=== PATIENT | female | born 1980 | race Caucasian/White ===

== ENCOUNTER 2019-04-08 13:46 | Emergency (ER) | payer OTHER, SELFPAY ==
[2019-04-08 13:48] VITALS: BP 210/132; PULSE 98; RESP 16; TEMP 37; O2SAT 97
--- NOTE | 2019-04-08 15:09 | ED.URI ---
HPI - URI/Sore Throat <SYDNI Chavarria-BC - Last Filed: 04/08/19 15:14> General Chief Complaint: Upper Respiratory Symptoms Stated Complaint: Throat pain Time Seen by Provider: 04/08/19 14:50 Source: patient Mode of arrival: ambulatory Limitations: no limitations History of Present Illness HPI Narrative: The patient is a 38-year-old female with the penicillin allergy is an active smoker presents with a chief complaint of sore throat since yesterday morning. She states that there is treated from her tonsils. She denies any fevers nausea vomiting or diarrhea. She denies any chest pain or shortness of breath. She states she has a normal cough for her since she is a smoker. Sees tried some fcdl-ehf-earhlmo measures for pain including Tylenol yesterday as well as throat traps. Of note the patient is very hypertensive upon checking into the ER, but states this is normal for her at health care institutions. She denies any chest pain or headache. She denies any ear pain as well. Related Data Home Medications Medication Instructions Recorded Confirmed [ADVIL MIGRAINE] PRN #0 11/04/16 Previous Rx's Medication Instructions Recorded azithromycin 500 mg PO QDAY 5 Days #0 mg 11/04/16 prednisone 50 mg PO AMCC 3 Days #0 tab 11/04/16 azithromycin See Rx Instructions .ROUTE 04/08/19 .COMPLEX #6 tab prednisone 50 mg PO DAILY #5 tab 04/08/19 Allergies Allergy/AdvReac Type Severity Reaction Status Date / Time amoxicillin [AMOXICILLIN] Allergy Unknown RASH Unverified 01/04/18 11:54 Penicillins [PENICILLINS] Allergy Unknown RASH Unverified 01/04/18 11:54 Review of Systems <MALINDA Chavarria - Last Filed: 04/08/19 15:14> Review of Systems GENERAL: Denies chills, fatigue, malaise, fever, sweats. HEENT: See HPI RESPIRATORY: Denies dyspnea, cough, wheezing, hemoptysis, sputum. CARDIOVASCULAR: Denies chest pain, palpitations, orthopnea, edema, GASTROINTESTINAL: Denies nausea, vomiting, abdominal pain, diarrhea, constipation, melena. : Denies dysuria, frequency, incontinence, hematuria, urinary retention. MUSCULOSKELETAL: denies weakness, joint pain, or bony pain SKIN: Denies rash, skin lesions, or other NEUROLOGIC: Denies weakness, headache, numbness, change in speech, confusion, seizures, incoordination. PSYCHIATRIC: No concerning psychosocial issues. 12 point review of systems is negative except for those stated above PFSH <MALINDA Chavarria - Last Filed: 04/08/19 15:14> Medical History (Updated 04/08/19 @ 15:11 by MALINDA Chavarria) Family history non-contributory (Acute) Social History Smoking Status: Current every day smoker Social History Smoking Status: Current every day smoker Exam <MALINDA Chavarria - Last Filed: 04/08/19 15:14> Narrative Exam Narrative: GENERAL: Obese female no acute distress HEAD: Atraumatic. Normocephalic. No temporal or scalp tenderness. EYES: Pupils equal round and reactive. Extraocular motions intact. No scleral icterus. No injection or drainage. ENT: Nose without bleeding, purulent drainage or septal hematoma. Throat with erythema, tonsillar hypertrophy with tonsils touching, exudate noted bilateral tonsils. Bilateral TMs pearly gonsales. NECK: Trachea midline. Anterior lymphadenopathy noted bilaterally. Supple, nontender, no meningeal signs. CARDIOVASCULAR: Regular rate and rhythm RESPIRATORY: Clear to auscultation. Breath sounds equal bilaterally. No wheezes, rales, or rhonchi. No accessory muscle use. No retractions. Speaking full sentences. No stridor. No increased respiratory effort. GASTROINTESTINAL: Abdomen soft, non-tender, nondistended. No hepato-splenomegaly, or palpable masses. No guarding. EXTREMITIES: No clubbing, cyanosis, or edema. No joint tenderness, effusion, or edema noted. BACK: Nontender without deformity or crepitance. No flank tenderness. NEURO: AOx3. SKIN: No rash or erythema. Initial Vital Signs Initial Vital Signs: Vital Signs Temperature 98.6 F 04/08/19 13:48 Pulse Rate 98 H 04/08/19 13:48 Respiratory Rate 16 04/08/19 13:48 Blood Pressure 210/132 H 04/08/19 13:48 Pulse Oximetry 97 04/08/19 13:48 <Rosa Carrion MD - Last Filed: 04/08/19 18:46> Initial Vital Signs Initial Vital Signs: Vital Signs Temperature 98.6 F 04/08/19 13:48 Pulse Rate 98 H 04/08/19 13:48 Respiratory Rate 16 04/08/19 13:48 Blood Pressure 210/132 H 04/08/19 13:48 Pulse Oximetry 97 04/08/19 13:48 Course <MALINDA Chavarria - Last Filed: 04/08/19 15:14> Course Narrative: Patient seen in conjunction with [facility] Vital Signs - 8 hr 04/08/19 13:48 Temperature 98.6 F Pulse Rate 98 H Respiratory Rate 16 Blood Pressure 210/132 H Pulse Oximetry 97 <Rosa Carrion MD - Last Filed: 04/08/19 18:46> Vital Signs - 8 hr 04/08/19 13:48 Temperature 98.6 F Pulse Rate 98 H Respiratory Rate 16 Blood Pressure 210/132 H Pulse Oximetry 97 MDM - URI/Sore Throat <MALINDA Chavarria - Last Filed: 04/08/19 15:14> Lab Data Point of Care Testing Rapid Strep A Negative MDM Narrative Medical decision making narrative: The patient is a 30-year-old female who presents with a chief complaint of sore throat. She tested negative for strep. However given her exam I will treat her for tonsillitis. Given the swelling noted in her throat, I will place her on a prednisone burst as well. Discussed patient that she should follow up with primary care provider. Discussed return precautions to the ER including difficulty breathing, inability to keep down fluids or other acute concerns. Patient has no questions or concerns upon discharge. Encouraged [id number] measures as needed and able for pain. <Rosa Carrion MD - Last Filed: 04/08/19 18:46> Lab Data Point of Care Testing Rapid Strep A Negative Discharge Plan Departure Patient Disposition: Home Clinical Impression: Tonsillitis Discharge Date/Time: 04/08/19 15:11 Interventions: ED Discharge Assessment Last Done: 04/08/19 15:10 Instructions: DI for Pharyngitis/Tonsillopharyngitis -- Adult Activity Restrictions/Additional Instructions: Your strep test came back negative. However given her exam, we have elected to treat you for tonsillitis with antibiotics and steroids. Please follow up with primary care provider. Please come back to the emergency department for any acute concerns such as difficulty breathing, inability keep down fluids etc. Please continue [id number] measures as needed and able for pain control Prescriptions: New azithromycin 250 mg tablet See Rx Instructions .ROUTE .COMPLEX Qty: 6 RF: 0 prednisone 50 mg tablet 50 mg PO DAILY Qty: 5 RF: 0 No Action [ADVIL MIGRAINE] PRNQty: 0 RF: 0 prednisone 50 MG tablet 50 mg PO AMCC 3 Days Qty: 0 RF: 0 azithromycin 500 MG tablet 500 mg PO QDAY 5 Days Qty: 0 RF: 0 Referrals: [facility] [Provider Group]
== END 2019-04-08 15:11 | disposition home or self-care (01) ==
PROVIDERS: Emergency Provider Nurse Practitioner Family
DX: J03.90 Acute tonsillitis, unspecified (principal)
CPT/HCPCS: 87880; 99282; 99283

== ENCOUNTER 2019-05-09 21:02 | Emergency (ER) | payer OTHER, SELFPAY ==
[2019-05-09 21:20] VITALS: BP 193/127; PULSE 97; RESP 18; TEMP 36.8; O2SAT 98
[2019-05-10 01:39] VITALS: BP 194/103; PULSE 89; RESP 18; TEMP 36.2; O2SAT 98
[2019-05-10 03:00] VITALS: BP 190/93; PULSE 87; RESP 18; O2SAT 97
[2019-05-10] MEDS: TRIMETH/SULFA 160/800 (DS) TABLET 1 TAB PO (03:05)
--- NOTE | 2019-05-10 03:23 | ED_ITS ---
HPI - Skin/Abscess/Foreign Bdy General Chief complaint: Skin/Abscess/Foreign Body Stated complaint: STATES INFECTED INGROWN HAIR Time Seen by Provider: 05/10/19 02:49 Source: patient Mode of arrival: ambulatory Limitations: no limitations History of Present Illness HPI narrative: Patient comes emergency department complaining of an ingrown hair for the last several days, which has developed into an infection. Patient states that this is located in her right groin area. No fevers or chills. No nausea or vomiting. No drainage from the area. No other complaints at this time. Related Data Home Medications Medication Instructions Recorded Confirmed [ADVIL MIGRAINE] PRN #0 11/04/16 Previous Rx's Medication Instructions Recorded azithromycin 500 mg PO QDAY 5 Days #0 mg 11/04/16 prednisone 50 mg PO AMCC 3 Days #0 tab 11/04/16 azithromycin See Rx Instructions .ROUTE 04/08/19 .COMPLEX #6 tab prednisone 50 mg PO DAILY #5 tab 04/08/19 sulfamethoxazole-trimethoprim 1 tab PO Q12H #14 tab 05/10/19 [Bactrim DS] Allergies Allergy/AdvReac Type Severity Reaction Status Date / Time amoxicillin [AMOXICILLIN] Allergy Unknown RASH Unverified 01/04/18 11:54 Penicillins [PENICILLINS] Allergy Unknown RASH Unverified 01/04/18 11:54 Review of Systems Constitutional Denies chills, Denies fever(s), Denies lethargy and Denies weakness Eyes Denies change in vision, Denies eye discharge, Denies irritation and Denies loss of vision ENT Ears, Nose, Mouth, and Throat: Denies change in voice, Denies neck pain and Denies sore throat Cardiovascular Denies chest pain, Denies irregular heart rhythm, Denies lightheadedness, Denies palpitations, Denies dyspnea, Denies dyspnea on exertion and Denies orthopnea Respiratory Denies cough, Denies dyspnea, Denies dyspnea on exertion and Denies wheezing Gastrointestinal Gastrointestinal: Denies abdominal pain, Denies change in bowel habits, Denies diarrhea, Denies nausea and Denies vomiting Genitourinary Denies hematuria, Denies flank pain, Denies urinary incontinence and Denies urinary urgency Musculoskeletal Denies neck pain Integumentary/Breasts Denies pruritus, Denies erythema, Denies rash and Denies wounds Comments: Skin lesion Neurologic Denies confusion, Denies loss of vision and Denies weakness Psychiatric Denies anxiety, Denies confusion, Denies depression, Denies homicidal ideation and Denies suicidal ideation Endocrine Denies palpitations Hematologic/Lymphatic Denies easy bruising Allergic/Immunologic Denies wheezing [facility] Medical History Healthy adult (Acute) Family history non-contributory (Acute) Surgical History No pertinent past surgical history (Acute) Social History Smoking Status: Current every day smoker Social History Smoking Status: Current every day smoker Exam Initial Vital Signs Initial Vital Signs: Vital Signs Temperature 98.3 F 05/09/19 21:20 Pulse Rate 97 H 05/09/19 21:20 Respiratory Rate 18 05/09/19 21:20 Blood Pressure 193/127 H 05/09/19 21:20 Pulse Oximetry 98 05/09/19 21:20 Const General: cooperative and well developed Nutritional Appearance: well nourished Orientation: alert, awake, oriented x3 and not confused HENVA Head: normocephalic and atraumatic Ears: external ears normal Nose: external nose normal and No nasal discharge Face and sinus: face symmetric and No dry mucous membranes Mouth: oral mucosae normal and moist mucous membranes Teeth and gingiva: dentition normal Eyes General: appearance normal, both eyes and all related structures Eyelids: eyelids normal Conjunctivae: conjunctivae normal Sclera: sclerae normal Pupils: PERRL EOM: EOM intact bilaterally Neck Neck: normal visual inspection, trachea midline, No lymphadenopathy, No midline deformity and No JVD Lymphatic: No lymphedema Chest Chest: normal inspection of the chest Resp Effort & Inspection: normal respiratory effort, able to speak in complete sentences, no respiratory distress and no use of accessory muscles Auscultation: clear to auscultation bilaterally, no rales, no rhonchi and no wheezes Cardio Rate: regular rate Rhythm: regular rhythm Heart Sounds: no click, no gallops, no murmurs and no rubs Pulses: normal peripheral pulses GI Inspection: non-distended Palpation: soft, no hepatosplenomegaly, No guarding, No pulsatile mass and No tender Back/Spine/Pelvis Back: No CVA tenderness Cervical Spine: cervical ROM normal and No pain with cervical ROM Thoracic/Lumbar Spine: thoracic and lumbar spine normal to inspection Skin General: No jaundice and No petechiae Other: Patient has a 2 cm diameter area of mild induration and erythema over the right medial pelvic area, superior to the mons pubis. No wound or drainage is noted. There is minimal fluctuance at the apex. Neuro General: alert, oriented x3, gait normal and no focal motor deficits Speech: speech normal Extrem General: full ROM, no clubbing, cyanosis or edema, no pedal edema and no calf tenderness Psych Appearance: well kempt Mental Status: mental status grossly normal Attitude: cooperative Thought Content: normal and suicidality Judgment: judgment good Course Course Narrative: I discussed with the patient that at this time, her findings of very minor, and I am not certain that there would be any fluid to drain her lesion at this time. Based on this in the very small size of the lesion, I feel that antibiotics are the most appropriate approach at this time. We have discussed that if the symptoms are worsening instead of improving over the next couple of days, then the patient may need to have an I&D, but at this point in time, I do not see evidence that this is indicated. We have discussed home management and symptoms, as well as the usual indications for return. Orders Ordered: Discontinued Medications Trimethoprim/Sulfamethoxazole (Bactrim Ds) 1 tab PO NOW ONE Stop: 05/10/19 03:02 Last Admin: 05/10/19 03:05 Dose: 1 tab Vital Signs - 8 hr 05/09/19 21:20 05/10/19 01:39 Temperature 98.3 F 97.1 F L Pulse Rate 97 H 89 Respiratory Rate 18 18 Blood Pressure 193/127 H Blood Pressure [Right Arm] 194/103 H Pulse Oximetry 98 98 MDM - Skin/Abscess/Foreign Bdy Medical Records Attestation: I reviewed the patient's medical records. Discharge Plan Departure Patient Disposition: Home Clinical Impression: Folliculitis Cellulitis Qualifiers: Site of cellulitis: trunk Site of cellulitis of trunk: groin Qualified Code(s): L03.314 - Cellulitis of groin Discharge Date/Time: 05/10/19 03:09 Interventions: ED Discharge Assessment Last Done: 05/10/19 03:00 Instructions: DI for Cellulitis -- Adult Prescriptions: New sulfamethoxazole-trimethoprim [Bactrim DS] 800-160 mg tablet 1 tab PO Q12H Qty: 14 RF: 0 No Action [ADVIL MIGRAINE] PRNQty: 0 RF: 0 prednisone 50 MG tablet 50 mg PO AMCC 3 Days Qty: 0 RF: 0 azithromycin 500 MG tablet 500 mg PO QDAY 5 Days Qty: 0 RF: 0 azithromycin 250 mg tablet See Rx Instructions .ROUTE .COMPLEX Qty: 6 RF: 0 prednisone 50 mg tablet 50 mg PO DAILY Qty: 5 RF: 0 Referrals: [facility] [Provider Group]
== END 2019-05-10 03:09 | disposition home or self-care (01) ==
PROVIDERS: Emergency Provider Emergency Medicine
DX: L73.9 Follicular disorder, unspecified (principal); L03.314 Cellulitis of groin
CPT/HCPCS: 99282; 99283

== ENCOUNTER 2022-11-27 09:20 | Emergency (ER) | payer OTHER, SELFPAY ==
[2022-11-27] VITALS (22 sets, daily range): BP systolic 190–231; BP diastolic 101–151; PULSE 86–145; RESP 15–23; TEMP 36.8; O2SAT 96–98; BMI 34.7
[2022-11-27 09:59] LABS: Add Manual Diff / Slide Review NO; Basophils Absolute Auto 100 /uL (0-100); Basophils Percent Auto 0.7 % (0-2); Eosinophils Absolute Auto 0 /uL (0-450); Eosinophils Percent Auto 0.6 % (2-4); Hematocrit 44.9 % (36-46); Hemoglobin 15.4 g/dL (12.0-16.0); Lymphocytes Absolute Auto 1300 /uL (1100-4500); Lymphocytes Percent Auto 15.7 % (25-40); Mean Corpuscular HGB Conc 34.2 % (30-36); Mean Corpuscular Hemoglobin 30.7 PG (26-34); Mean Corpuscular Volume 89.8 fL (80-100); Monocytes Absolute Auto 600 /uL (0-900); Monocytes Percent Auto 7.4 % (3-14); Neutrophils Absolute Auto 6500 /uL (1500-7000); Neutrophils Percent Auto 75.6 % (50-75); Platelet Count 331 X10^3/uL (150-400); White Blood Cell Count 8.5 X10^3/uL (4.5-11.0)
[2022-11-27 10:10] LABS: Alanine Aminotransferase 32 IU/L (<35); Albumin 4.5 g/dL (3.5-5.0); Albumin Globulin Ratio 1.2 (1.0-2.8); Alkaline Phosphatase 137 U/L (38-126); Aspartate Aminotransferase 30 IU/L (14-36); BUN Creatinine Ratio 13.8 (6-22); Bilirubin Total 0.5 mg/dL (0.2-1.3); Blood Urea Nitrogen 8 mg/dL (7-17); Calcium 8.9 mg/dL (8.4-10.2); Carbon Dioxide 23 mmol/L (22-32); Chloride 101 mmol/L (98-107); Estimated Glomerular Filt Rate > 60 mL/min (>60); Globulin 3.9 g/dL (1.7-4.1); Glucose 232 mg/dL (70-100); HEMOLYSIS < 15 (0-50); Lactate (Lactic Acid) 1.5 mmol/L (0.7-2.1); Potassium 3.8 mmol/L (3.4-5.1); Sodium 133 mmol/L (137-145); Total Protein 8.4 g/dL (6.3-8.2)
[2022-11-27] MEDS: SODIUM CHLORIDE 0.9% 1,000 ML 1000 ML IV (10:11)
[2022-11-27 10:26] LABS: Procalcitonin 0.16 ng/mL (<0.5)
[2022-11-27 10:28] LABS: Creatine Kinase 54 U/L (30-135)
--- NOTE | 2022-11-27 10:36 | ED.DENTAL ---
HPI - Dental/Oral General Chief complaint: Dental/Oral Stated complaint: left side of mouth swollen Time Seen by Provider: 11/27/22 09:51 Source: patient Mode of arrival: Ambulatory History of Present Illness HPI Narrative: Patient is a 42-year-old female history of uncontrolled hypertension, diabetes presenting today with mouth pain and swelling over left side of her face. She reports that she has poor dentition at baseline she then ate chips and feels like she irritated 1 of her teeth and then she burned the roof of her mouth. This morning she woke up and noted that she had swelling on the left side of her face. No fevers or chills. She is no change in voice she is able to manage her secretions without any difficulty. She is to be extremely hypertensive. She reports that she did not take her amlodipine this morning and also she and her PCP are managing her blood pressure she has only been on amlodipine for about 3 weeks but her blood pressures have been in the 190s at home. She is no chest pain no shortness of breath no headache or neck pain. She also reports that every time she is in the doctor's office her blood pressure is elevated. Related Data Previous Rx's Medication Instructions Recorded clindamycin HCl 150 mg capsule 150 mg PO QID #21 caps 11/27/22 Allergies Allergy/AdvReac Type Severity Reaction Status Date / Time amoxicillin [AMOXICILLIN] Allergy Unknown RASH Verified 11/27/22 09:39 Penicillins [PENICILLINS] Allergy Unknown RASH Verified 11/27/22 09:39 Review of Systems Review of Systems ROS Unobtainable: All systems reviewed & are unremarkable except as noted in HPI and below Patient History Medical History (Updated 11/27/22 @ 10:58 by Shawnee Mendiola DO) Family history non-contributory Healthy adult Surgical History No pertinent past surgical history Social History Smoking Status: Current every day smoker Smoking Status: Current every day smoker alcohol intake frequency: other Substance Use Type: does not use Exam Initial Vital Signs Initial Vital Signs: Vital Signs Temperature 98.3 F 11/27/22 09:22 Pulse Rate 136 H 11/27/22 09:22 Respiratory Rate 15 11/27/22 09:22 Blood Pressure 216/144 H 11/27/22 09:22 Pulse Oximetry 96 11/27/22 09:22 Oxygen Delivery Method Room Air 11/27/22 09:22 GENERAL: Alert pleasant 42-year-old female no acute distress HEENT: Head atraumatic,EOMI, pupils reactive, face symmetric, moist mucous membranes MOUTH: Poor dentition no obvious dental abscess no irritation or swelling to the roof mouth. Managing her own secretions no stridor no uvula swelling or deviation no tongue swelling CARDIOVASCULAR: Regular rate and rhythm without murmurs, rubs or gallops. RESPIRATORY: Breath sounds equal bilaterally, no wheezes rales or rhonchi. EXTREMITIES: Normal range of motion, no clubbing or edema. Neurovascularly intact NEUROLOGICAL: Alert and oriented x4. SKIN: Warm, dry, no laceration, no petechiae, no rashes or lesions. Course Orders Ordered: ED Orders 11/27/22 09:46 CBC Auto Diff [Complete Blood Count AUTO DIFF] Stat CMP [Comprehensive Metabolic Panel] Stat Lactate (Lactic Acid) Stat Procalcitonin Stat 11/27/22 09:55 Troponin & CK Cardiac Panel Stat 11/27/22 10:16 EKG-12 Lead Stat 11/27/22 10:25 Blood Culture Stat Discontinued Medications Amlodipine Besylate (Amlodipine 5 Mg Tablet) 10 mg PO NOW ONE Stop: 11/27/22 10:45 Last Admin: 11/27/22 10:51 Dose: 10 mg Documented By: ERINN Sodium Chloride (Normal Saline 0.9%) 1,000 mls @ 1,000 mls/hr IV BOLUS ONE Stop: 11/27/22 10:50 Last Infusion: 11/27/22 11:08 Dose: 0 mls/hr Documented By: Admin: 11/27/22 10:11 Dose: 1,000 mls/hr Documented By: ERINN Labetalol HCl (Labetalol 20 Mg/4 Ml Syringe) 5 mg IV NOW ONE; Protocol Stop: 11/27/22 10:46 Last Admin: 11/27/22 10:51 Dose: 5 mg Documented By: ERINN Vital Signs Vital signs: Vital Signs - 8 hr 11/27/22 09:22 11/27/22 09:23 11/27/22 09:24 Temperature 98.3 F Pulse Rate 136 H 145 H Respiratory Rate 15 Blood Pressure 216/144 H 216/144 H Pulse Oximetry 96 96 Oxygen Delivery Method Room Air 11/27/22 09:24 11/27/22 09:25 11/27/22 09:30 Temperature Pulse Rate 139 H 133 H Respiratory Rate Blood Pressure 214/151 H Pulse Oximetry 97 97 Oxygen Delivery Method 11/27/22 10:01 11/27/22 10:00 11/27/22 10:08 Temperature Pulse Rate 116 H 118 H 107 H Respiratory Rate Blood Pressure Pulse Oximetry 97 96 Oxygen Delivery Method 11/27/22 10:08 11/27/22 10:10 11/27/22 10:10 Temperature Pulse Rate 110 H Respiratory Rate Blood Pressure 214/122 H 215/116 H Pulse Oximetry 96 Oxygen Delivery Method 11/27/22 10:51 11/27/22 10:30 11/27/22 10:30 Temperature Pulse Rate 105 H 104 H Respiratory Rate Blood Pressure 231/118 H 223/112 H Pulse Oximetry 96 Oxygen Delivery Method 11/27/22 10:41 11/27/22 10:41 11/27/22 11:00 Temperature Pulse Rate 107 H Respiratory Rate Blood Pressure 231/118 H 225/114 H Pulse Oximetry 97 Oxygen Delivery Method 11/27/22 11:00 11/27/22 11:03 11/27/22 11:03 Temperature Pulse Rate 96 H 91 H Respiratory Rate 23 Blood Pressure 219/112 H Pulse Oximetry 98 98 Oxygen Delivery Method 11/27/22 11:06 11/27/22 11:06 11/27/22 11:09 Temperature Pulse Rate 87 87 Respiratory Rate 22 20 Blood Pressure 216/113 H Pulse Oximetry 97 97 Oxygen Delivery Method 11/27/22 11:09 11/27/22 11:12 11/27/22 11:12 Temperature Pulse Rate 87 Respiratory Rate 18 Blood Pressure 202/118 H 204/110 H Pulse Oximetry 97 Oxygen Delivery Method 11/27/22 11:15 11/27/22 11:15 11/27/22 11:18 Temperature Pulse Rate 87 88 Respiratory Rate 18 18 Blood Pressure 209/112 H Pulse Oximetry 97 97 Oxygen Delivery Method 11/27/22 11:18 11/27/22 11:21 11/27/22 11:21 Temperature Pulse Rate 86 Respiratory Rate 21 Blood Pressure 193/105 H 190/101 H Pulse Oximetry 97 Oxygen Delivery Method 11/27/22 11:24 11/27/22 11:24 11/27/22 11:31 Temperature Pulse Rate 88 87 Respiratory Rate 19 18 Blood Pressure 196/103 H 191/102 H Pulse Oximetry 97 96 Oxygen Delivery Method Room Air MDM - Dental/Oral Lab Data 11/27/22 09:46 11/27/22 09:46 Labs: Lab Results 11/27/22 11/27/22 11/27/22 Range/Units 09:46 09:46 09:46 WBC 8.5 (4.5-11.0) X10^3/uL RBC 5.00 (4.0-5.2) X10^6/uL Hgb 15.4 (12.0-16.0) g/dL Hct 44.9 (36-46) % MCV 89.8 (80-100) fL MCH 30.7 (26-34) PG MCHC 34.2 (30-36) % RDW 13.0 (11.6-14.8) % Plt Count 331 (150-400) X10^3/uL Neut % (Auto) 75.6 H (50-75) % Lymph % (Auto) 15.7 L (25-40) % [place] % (Auto) 7.4 (3-14) % Eos % (Auto) 0.6 L (2-4) % Baso % (Auto) 0.7 (0-2) % Neut # (Auto) 6500 (9869-8079) /uL Lymph # (Auto) 1300 (3681-9125) /uL [place] # (Auto) 600 (0-900) /uL Eos # (Auto) 0 (0-450) /uL Baso # (Auto) 100 (0-100) /uL Sodium (137-145) mmol/L Potassium (3.4-5.1) mmol/L Chloride (98-107) mmol/L Carbon Dioxide (22-32) mmol/L BUN (7-17) mg/dL Creatinine (0.52-1.04) mg/dL Estimated GFR (>60) mL/min BUN/Creatinine Ratio (6-22) Glucose (70-100) mg/dL Lactate 1.5 (0.7-2.1) mmol/L Calcium (8.4-10.2) mg/dL Total Bilirubin (0.2-1.3) mg/dL AST (14-36) IU/L ALT (<35) IU/L Alkaline Phosphatase (38-126) U/L Total Creatine Kinase (30-135) U/L CK-MB (CK-2) CK-MB (CK-2) Rel Index Troponin I (0.01-0.034) ng/mL Total Protein (6.3-8.2) g/dL Albumin (3.5-5.0) g/dL Globulin (1.7-4.1) g/dL Albumin/Globulin Ratio (1.0-2.8) Procalcitonin 0.16 (<0.5) ng/mL 11/27/22 11/27/22 Range/Units 09:46 09:55 WBC (4.5-11.0) X10^3/uL RBC (4.0-5.2) X10^6/uL Hgb (12.0-16.0) g/dL Hct (36-46) % MCV (80-100) fL MCH (26-34) PG MCHC (30-36) % RDW (11.6-14.8) % Plt Count (150-400) X10^3/uL Neut % (Auto) (50-75) % Lymph % (Auto) (25-40) % [place] % (Auto) (3-14) % Eos % (Auto) (2-4) % Baso % (Auto) (0-2) % Neut # (Auto) (5474-2238) /uL Lymph # (Auto) (8810-8845) /uL [place] # (Auto) (0-900) /uL Eos # (Auto) (0-450) /uL Baso # (Auto) (0-100) /uL Sodium 133 L (137-145) mmol/L Potassium 3.8 (3.4-5.1) mmol/L Chloride 101 (98-107) mmol/L Carbon Dioxide 23 (22-32) mmol/L BUN 8 (7-17) mg/dL Creatinine 0.58 (0.52-1.04) mg/dL Estimated GFR > 60 (>60) mL/min BUN/Creatinine Ratio 13.8 (6-22) Glucose 232 H (70-100) mg/dL Lactate (0.7-2.1) mmol/L Calcium 8.9 (8.4-10.2) mg/dL Total Bilirubin 0.5 (0.2-1.3) mg/dL AST 30 (14-36) IU/L ALT 32 (<35) IU/L Alkaline Phosphatase 137 H (38-126) U/L Total Creatine Kinase 54 (30-135) U/L CK-MB (CK-2) TNP CK-MB (CK-2) Rel Index TNP Troponin I < 0.012 (0.01-0.034) ng/mL Total Protein 8.4 H (6.3-8.2) g/dL Albumin 4.5 (3.5-5.0) g/dL Globulin 3.9 (1.7-4.1) g/dL Albumin/Globulin Ratio 1.2 (1.0-2.8) Procalcitonin (<0.5) ng/mL ECG Data Interpretation: Sinus rhythm rate 104 kg DE interval 146 QRS [address] changes no T-wave inversions MDM Narrative Medical decision making narrative: Patient 42-year-old female history of diabetes and hypertension presenting today with swelling face and dental pain. She actually has an appointment with a dentist later this month to have teeth pulled and dentures placed. He is found to be persistently hypertensive with blood pressure greater than 220. She is not taken her morning amlodipine. She is given 1st dose of amlodipine and a small dose of labetalol. She is no sign of end-organ damage. Recommend she follow-up with her PCP and continue checking her blood pressure at home. Will start her on clindamycin secondary to significant penicillin allergy and she can follow-up with her dentist as scheduled. No evidence of a Amilcar's angina severe sepsis or other infection. Discharge Plan Departure Patient Disposition: Home Clinical Impression: Pain, dental, Hypertension Instructions: High Blood Pressure, DI for Dental Pain Activity Restrictions/Additional Instructions: *You have been diagnosed with dental pain and high blood pressure *What to do: At this time you do have a dental infection please follow-up with your dentist as scheduled. Blood pressure here is noted to be extremely elevated. Please continue to monitor blood pressure at home 1-2 times daily. He will likely need further medications and changes with her PCP. *Continue to take medications as directed Clindamycin 1 tablet 4 times a day for 7 days --> [facility] IN [place] *Follow up with your primary care provider in 2-3 days or call [phone] *Return to ER if you should have increasing swelling redness of her face chest pain shortness of breath difficulty swallowing difficulty breathing or any new, worsening or concerning symptoms Prescriptions: New clindamycin HCl 150 mg capsule 150 mg PO QID Qty: 21 0RF Referrals: [facility] [Primary Care Provider] - Stand Alone Forms: Patient Portal/API
[2022-11-27 10:37] LABS: Troponin I < 0.012 ng/mL (0.01-0.034)
[2022-11-27] MEDS: AMLODIPINE 5 MG TABLET 10 MG PO (10:51)
[2022-11-27] MEDS: LABETALOL 20 MG/4 ML SYRINGE 5 MG IV (10:51)
== END 2022-11-27 11:34 | disposition home or self-care (01) ==
PROVIDERS: Emergency Provider Emergency Medicine
DX: K08.89 Other specified disorders of teeth and supporting structures (principal); I10 Essential (primary) hypertension; R07.9 Chest pain, unspecified
CPT/HCPCS: 36415; 80053; 82550; 83605; 84145; 84484; 85025; 87040; 93005; 96361; 96374; 99284

== ENCOUNTER 2025-06-06 15:13 | Emergency (ER) | payer OTHER, SELFPAY ==
[2025-06-06] VITALS (28 sets, daily range): BP systolic 146–246; BP diastolic 69–122; PULSE 80–128; RESP 18; TEMP 36.7; O2SAT 96–100; BMI 30.7
--- NOTE | 2025-06-06 15:22 | DI.CT.S_ITS ---
PROCEDURE: CT STROKE INDICATIONS: facial droop, aphasia started last night TECHNIQUE: Noncontrast 4.5 mm thick angled axial sections acquired from the foramen magnum to the vertex, with coronal reformats. For radiation dose reduction, the following was used: automated exposure control, adjustment of mA and/or kV according to patient size. COMPARISON: None. FINDINGS: Image quality: Diagnostic. CSF spaces: Basal cisterns are patent. No extra-axial fluid collections. Ventricles are normal in size and shape. Brain: No midline shift. Subacute infarct with hypoattenuation and cytotoxic edema involving the anterior thalamus and possibly the genu and posterior horn of the internal capsule. There is mild mass effect on the frontal horn of the left lateral ventricle. Skull and face: Calvarium and visualized facial bones are intact, without suspicious lesions. Sinuses: Visualized sinuses and mastoids are clear. IMPRESSION: Subacute left-sided lacunar infarction. No evidence of hemorrhagic transformation. Mild mass effect. Comment: Findings were discussed with Dr. Ulrich on 06/06/2025 at 1549 hours This study fulfills neurological imaging criteria for inclusion or exclusion of acute stroke therapies based on available published neurological imaging guidelines. Dictated by: Tom Villela M.D. on 06/06/2025 at 15:48 Approved by: Tom Villela M.D. on 06/06/2025 at 15:53
--- NOTE | 2025-06-06 15:22 | EKG_ITS ---
[address] [address] Test Date: 2025-06-06 Pat Name: Ilenaa Sesay Department: Room: Gender: Female Shaft Sinker: DELORIS : 1980 Requested By: Order Number: [id number] Reading MD: Fidel Barnett MD Measurements Intervals [place] Rate: 113 P: [place]: 140 QRS: -20 QRSD: 84 T: 153 QT: 324 QTc: 444 Interpretive Statements Sinus tachycardia Left ventricular hypertrophy with repolarization abnormality ( R in aVL , Jose A product ) Inferior infarct , age undetermined NO SIGNIFICANT CHANGE FROM PRIOR TRACING Electronically Signed On 06-10-2025 7:44:03 PDT by Fidel Barnett MD
--- NOTE | 2025-06-06 15:22 | DI.CT.S_ITS ---
PROCEDURE: CT ANGIO HEAD AND NECK INDICATIONS: facial droop, aphasia started last night TECHNIQUE: After the administration of intravenous contrast, 1 mm thick sections acquired from the aortic arch through the [place]. 3-dimensional eqbzijn-fvxuweaav-zhfnfpfptz (MIP) and/or volume rendering reformats were acquired of the central intracranial vasculature and neck separately. For radiation dose reduction, the following was used: automated exposure control, adjustment of mA and/or kV according to patient size. COMPARISON: None. FINDINGS: Image quality: Diagnostic. Cerebral CT Angiogram: Internal carotid arteries: No acute findings. Intracranial ICA are patent with no significant stenosis. No occlusion. No aneurysm. Anterior cerebral arteries: Unremarkable. No significant stenosis. No occlusion. No aneurysm. Middle cerebral arteries: Question occlusion of an M 2 segment of the left middle cerebral artery versus the presence of a small middle cerebral branch aneurysm. Reference images 88 through 92 of coronal series 3. Posterior cerebral arteries: Unremarkable. No significant stenosis. No occlusion. No aneurysm. Basilar artery: Unremarkable. No significant stenosis. No occlusion. No aneurysm. Vertebral arteries: Unremarkable as visualized. Dural venous sinuses: Unremarkable given phase of enhancement. Other: Arterial phase appearance of the brain parenchyma demonstrates a subacute lacunar infarction on the left involving the anterior thalamus and possibly genu and posterior limb of the internal capsule. Neck CT Angiogram: Internal carotid arteries: Unremarkable. No significant stenosis. No dissection or occlusion. Common carotid arteries: Unremarkable. No significant stenosis. No dissection or occlusion. External carotid arteries: Unremarkable. No occlusion. Vertebral arteries: Unremarkable. No significant stenosis. No dissection or occlusion. Aortic Arch and Mediastinum: Partially visualized aortic arch unremarkable without evidence of aneurysm. Origins of the great vessels unremarkable. Other: There are multiple right lobe thyroid nodules. On coronal image 138 of series 3 there is a 1.7 cm upper pole thyroid nodule. On coronal image 142 of series 3 there is a 1.9 x 2.0 cm right lobe thyroid nodule. IMPRESSION: There is either a left M2 segment occlusion or a tiny MCA branch aneurysm present. This is seen when evaluating images 88 through 92 of coronal sequence 3. No significant abnormality is seen within the arteries of the neck. Subacute left-sided lacunar infarction. Multiple thyroid nodules. Comment: Findings were discussed with Dr. Ramon on 06/06/2025 at 1601 hours. Any quantitative measurements of stenosis were performed using NASCET criteria. Dictated by: Tom Villela M.D. on 06/06/2025 at 15:53 Approved by: Tom Villela M.D. on 06/06/2025 at 16:06
--- NOTE | 2025-06-06 15:24 | ED.NEUROSD ---
HPI - Neuro Symptoms/Deficit General Chief Complaint: Neuro Symptoms/Deficit Stated Complaint: Stroke like symptoms Time Seen by Provider: 06/06/25 15:22 Source: patient and family Mode of arrival: Ambulatory History of Present Illness HPI Narrative: 44-year-old female history of hypertension, diabetes was not treated until recently presents with facial droop, some confusion/expressive aphasia that they noticed started last night around 7:00 p.m.. Patient does have some difficulty expressing herself although she can converse somewhat. They indicate she recently started diabetic medications in the past month. She states she does not take anything for blood pressure but has been has prescriptions for HCTZ 25 mg daily and lisinopril 10 mg daily. Patient denies headache currently but states she had 1 last night. Has a obvious facial droop on the right. No chest pain or shortness of breath. No nausea or vomiting. No loss of bowel or bladder control. Neither 1 appreciates any weakness in her extremities. She noted felt a little bit dizzy when she 1st woke up and had some numbness tingling when she 1st woke up today but does not have any paresthesias currently. She does not indicate that she has difficulty expressing herself. Unclear what her current medications for diabetes but they are described as oral medications. Denies any major surgeries. Reports allergy to amoxicillin and penicillin. Daily tobacco use, has not alcoholic drink some nights, no recreational drugs. Patient's primary care is through the [facility]. She is accompanied by her . On Anticoagulants: No Related Data Previous Rx's ?Medication ?Instructions ?Recorded clindamycin HCl 150 mg capsule 150 mg PO QID #21 caps 11/27/22 Allergies Allergy/AdvReac Type Severity Reaction Status Date / Time amoxicillin (AMOXICILLIN) Allergy Unknown RASH Verified 06/06/25 15:20 Penicillins (PENICILLINS) Allergy Unknown RASH Verified 06/06/25 15:20 Review of Systems Review of Systems ROS Unobtainable: All systems reviewed & are unremarkable except as noted in HPI and below Hematologic/Lymphatic On Anticoagulants: No Patient History Medical History (Updated 06/06/25 @ 16:15 by Gissel Ramon DO) Healthy adult Family history non-contributory Surgical History No pertinent past surgical history Social History Smoking Status: Current every day smoker Smoking Status: Current every day smoker tobacco type: cigarettes alcohol intake frequency: other Exam Narrative Exam Narrative: GEN: well nourished, well appearing female, alert and oriented x 3, patient appears to be in my distress. HEENT: Atraumatic, pupils are equal round reactive to light, extraocular movements are intact, nares are clear, TMs are clear with no fluid, there is no conjunctival pallor. Throat is clear without any exudates, erythema, tonsillar enlargement or uvular deviation, patient does have right facial droop does not improve somewhat with smile but it is still present. HEART: Regular rate and rhythm without murmur, clicks, rubs. No carotid bruits, pulses are equal in upper and lower extremities LUNGS:Lungs clear to auscultation, no wheezes, rales, crackles, chest moves symmetrically ABD:bowel sounds normal, soft, non-tender, no guarding, rebound, rigidity, no masses noted, no hepatosplenomegaly MSCL: Non-tender, no muscle atrophy, muscles strength 5/5 upper and lower extremities, full range of motion. NEURO:CN 2-12 intact, sensation normal, finger nose finger test normal, heel mejia test normal. Initial Vital Signs Initial Vital Signs: Vital Signs Temperature 98.0 F 06/06/25 15:16 Pulse Rate 123 H 06/06/25 15:16 Respiratory Rate 18 06/06/25 15:16 Blood Pressure 212/114 H 06/06/25 15:16 Pulse Oximetry 98 06/06/25 15:16 Oxygen Delivery Method Room Air 06/06/25 15:16 Scores NIH Stroke Scale Level of Conciousness: Alert, keenly responsive Ask month/age: Answers both questions correctly. Open/close eyes, close hand: Performs both tasks correctly Best gaze horizontal: Normal Visual callaway: No visual loss Facial palsy: Partial paralysis, total or near total paralysis of lower face Left arm drift: No drift for full 10 sec Right arm drift: No drift for full 10 sec Left leg drift: No drift for full 5 sec Right leg drift: No drift for full 5 sec Limb ataxia: Absent Sensory on face/arms/legs: Normal, no sensory loss Best language: Mild to moderate, slurs some words Dysarthria: Mild to mod,some slurring Extinction or inattention: No abnormality Total NIH Stroke scale score: 4 Course Orders Ordered: ED Orders 06/06/25 15:[address] angio head and neck Stat Urine Drug Screen, Rapid Stat EKG-12 Lead Stat 06/06/25 15:29 Complete Blood Count AUTO DIFF Stat PTT Partial Thromboplastin Vick Stat Test Serum,Qual Stat Prothrombin Time INR Stat 06/06/25 16:03 Comprehensive Metabolic Panel Stat Ethanol (ETOH) Stat Troponin & CK Cardiac Panel Stat Discontinued Medications Aspirin (Aspirin 81 Mg Chew Tab) 324 mg PO NOW ONE Stop: 06/06/25 16:46 Last Admin: 06/06/25 16:49 Dose: 324 mg Documented By: DAVID Sodium Chloride (Normal Saline 0.9%) 1,000 mls @ 150 mls/hr IV CONT GIOVANA Last Admin: 06/06/25 15:47 Dose: 150 mls/hr Documented By: DAVID Labetalol HCl (Labetalol 20 Mg/4 Ml Syringe) 5 mg IV NOW ONE Stop: 06/06/25 15:42 Last Admin: 06/06/25 15:46 Dose: 5 mg Documented By: DAVID Vital Signs Vital signs: Vital Signs - 8 hr 06/06/25 15:16 06/06/25 15:23 06/06/25 15:23 Temperature 98.0 F Pulse Rate 123 H 118 H Respiratory Rate 18 Blood Pressure 212/114 H 202/111 H Pulse Oximetry 98 99 Oxygen Delivery Method Room Air 06/06/25 15:30 06/06/25 15:30 06/06/25 15:40 Temperature Pulse Rate 121 H 128 H Respiratory Rate Blood Pressure 181/111 H Pulse Oximetry 100 Oxygen Delivery Method 06/06/25 15:40 06/06/25 15:46 06/06/25 15:50 Temperature Pulse Rate 110 H Respiratory Rate Blood Pressure 246/122 H 246/122 H 181/93 H Pulse Oximetry Oxygen Delivery Method 06/06/25 15:50 06/06/25 15:55 06/06/25 15:55 Temperature Pulse Rate 105 H 94 H Respiratory Rate Blood Pressure 171/86 H Pulse Oximetry 98 97 Oxygen Delivery Method 06/06/25 16:00 06/06/25 16:00 06/06/25 16:05 Temperature Pulse Rate 96 H 88 Respiratory Rate Blood Pressure 155/75 H Pulse Oximetry 97 97 Oxygen Delivery Method 06/06/25 16:05 06/06/25 16:10 06/06/25 16:10 Temperature Pulse Rate 89 Respiratory Rate Blood Pressure 150/79 H 153/80 H Pulse Oximetry 96 Oxygen Delivery Method 06/06/25 16:15 06/06/25 16:15 06/06/25 16:20 Temperature Pulse Rate 87 Respiratory Rate Blood Pressure 156/81 H 154/84 H Pulse Oximetry 97 Oxygen Delivery Method 06/06/25 16:20 06/06/25 16:25 06/06/25 16:25 Temperature Pulse Rate 87 88 Respiratory Rate Blood Pressure 161/81 H Pulse Oximetry 96 98 Oxygen Delivery Method 06/06/25 16:30 06/06/25 16:30 06/06/25 16:35 Temperature Pulse Rate 86 Respiratory Rate Blood Pressure 149/80 H 155/79 H Pulse Oximetry 96 Oxygen Delivery Method 06/06/25 16:35 06/06/25 16:40 06/06/25 16:40 Temperature Pulse Rate 86 90 Respiratory Rate Blood Pressure 171/91 H Pulse Oximetry 96 96 Oxygen Delivery Method 06/06/25 16:46 06/06/25 16:46 06/06/25 16:46 Temperature Pulse Rate 96 H 92 H Respiratory Rate Blood Pressure 168/86 H 168/86 H Pulse Oximetry 97 Oxygen Delivery Method 06/06/25 16:50 06/06/25 16:50 06/06/25 16:55 Temperature Pulse Rate 91 H 86 Respiratory Rate Blood Pressure 163/89 H Pulse Oximetry 98 97 Oxygen Delivery Method 06/06/25 16:55 06/06/25 17:00 06/06/25 17:00 Temperature Pulse Rate 84 Respiratory Rate Blood Pressure 160/87 H 158/89 H Pulse Oximetry 97 Oxygen Delivery Method 06/06/25 17:05 06/06/25 17:05 06/06/25 17:10 Temperature Pulse Rate 83 82 Respiratory Rate Blood Pressure 171/87 H Pulse Oximetry 98 97 Oxygen Delivery Method 06/06/25 17:10 06/06/25 17:15 06/06/25 17:15 Temperature Pulse Rate 81 Respiratory Rate Blood Pressure 161/86 H 159/91 H Pulse Oximetry 99 Oxygen Delivery Method 06/06/25 17:20 06/06/25 17:20 06/06/25 17:25 Temperature Pulse Rate 80 Respiratory Rate Blood Pressure 146/69 H 169/87 H Pulse Oximetry 99 Oxygen Delivery Method 06/06/25 17:25 06/06/25 17:30 06/06/25 17:30 Temperature Pulse Rate 87 86 Respiratory Rate Blood Pressure 161/88 H Pulse Oximetry 100 100 Oxygen Delivery Method 06/06/25 17:35 06/06/25 17:35 06/06/25 17:40 Temperature Pulse Rate 88 84 Respiratory Rate Blood Pressure 162/89 H Pulse Oximetry 99 99 Oxygen Delivery Method 06/06/25 17:40 Temperature Pulse Rate Respiratory Rate Blood Pressure 151/83 H Pulse Oximetry Oxygen Delivery Method MDM - Neuro Symptoms/Deficit Lab Data 06/06/25 15:29 06/06/25 16:03 Labs: Lab Results 06/06/25 06/06/25 06/06/25 Range/Units 15:27 15:29 16:03 WBC 11.2 H (4.5-11.0) X10^3/uL RBC 4.67 (4.0-5.2) X10^6/uL Hgb 14.2 (12.0-16.0) g/dL Hct 41.7 (36-46) % MCV 89.5 (80-100) fL MCH 30.4 (26-34) PG MCHC 34.0 (30-36) % RDW 13.2 (11.6-14.8) % Plt Count 324 (150-400) X10^3/uL Neut % (Auto) 73.2 (50-75) % Lymph % (Auto) 20.2 L (25-40) % [place] % (Auto) 4.9 (3-14) % Eos % (Auto) 1.1 L (2-4) % Baso % (Auto) 0.6 (0-2) % Neut # (Auto) 8200 H (0612-2383) /uL Lymph # (Auto) 2300 (2195-5377) /uL [place] # (Auto) 500 (0-900) /uL Eos # (Auto) 100 (0-450) /uL Baso # (Auto) 100 (0-100) /uL PT 12.6 H (9.4-12.5) SECONDS INR 1.1 (0.9-1.3) APTT 33 (25.1-36.5) SECONDS Sodium 132 L (137-145) mmol/L Potassium 3.6 (3.4-5.1) mmol/L Chloride 100 (98-107) mmol/L Carbon Dioxide 20 L (22-32) mmol/L BUN 20 H (7-17) mg/dL Creatinine 0.71 (0.52-1.04) mg/dL Estimated GFR > 60 (>60) mL/min BUN/Creatinine Ratio 28.2 H (6-22) Glucose 253 H (70-99) mg/dL POC Whole Bld Glucose 272 H (70-99) mg/dL Calcium 8.9 (8.4-10.2) mg/dL Total Bilirubin 0.6 (0.2-1.3) mg/dL AST 21 (14-36) IU/L ALT 17 (<35) IU/L Alkaline Phosphatase 110 (38-126) U/L Total Creatine Kinase 35 (30-135) U/L Troponin I 0.033 (0.01-0.034) ng/mL Total Protein 7.4 (6.3-8.2) g/dL Albumin 4.1 (3.5-5.0) g/dL Globulin 3.3 (1.7-4.1) g/dL Albumin/Globulin Ratio 1.2 (1.0-2.8) Serum , Qual Negative (Negative) Ethyl Alcohol < 10 (<10) mg/dL Point of Care Testing Glucose POC 272 ECG Data Attestation: I personally reviewed and interpreted this ECG as follows: Prior ECG tracings: available for review Interpretation: Sinus tachycardia rate of 113 SD 140 QRS 84 QTC of 444, no acute ST-elevation LVH was inverted T-waves in 1 and aVL. Patient has prior from 11/27/2021 which appears similar to today. MDM Narrative Medical decision making narrative: Labs white count 11.2 hemoglobin of 14 platelets of 324. INR is 1.1, sodium is 132 CO2 is 20 BUN is 20 with a normal potassium chloride, creatinine is 0.71 glucose is 253 LFTs are normal, troponin 0.033 EKG shows sinus tachycardia rate of 113 LVH, does have inverted T-waves in 1 and aVL but appears similar to 11/27/2021. CT head, subacute infarct results called to myself by Dr. Villela. CT angio head and neck. There left M2 segment occlusion or tiny MCA branch aneurysm present seen when evaluating images [id number] coronal sequences 3. No significant abnormality at arteries of the neck. Subacute left-sided lacunar infarct. Multiple thyroid nodules. Results relayed to myself by Dr. Manohar Julio. NIH 4. Patient is not tPA candidate but has a code IR candidate. Still in the window for time frame. Images pushed to tele stroke, page out to tele stroke neurology. Spoke with Dr. Singh @ 1610. They will review images and call back. Relayed radiologist concern specifically images 88-92 on the coronal sequence 3 concern for occlusion versus small aneurysm of the left MCA. Dr. Thorne called back @ 1650, potential candidate for intervention with IR they would like to transfer down for perfusion scan and final decision. Patient is close to the window so we will fly patient. They note permissive hypertension. Spoke with the patient and family they are agreeable with the plan. Aspirin 324mg chewable given. Patient had labetalol 5 mg. Patient was quite sensitive to this. Did not receive any additional doses. . Stroke Core Measures Exclusion Criteria TPA in CVA: Symptom Onset >3 or 4.5 Hours Critical Care Time Critical Care Time Critical Care Time: Yes Total Critical Care Time: 35 Attestation: The high probability of a clinically significant, sudden or life threatening deterioration of the [systems] system(s) required my full and direct attention, intervention and personal management. The aggregate critical care time was [--] minutes. This time is in addition to time spent performing reported procedures but includes the following: [x] Data Review and interpretation [x] Patient assessment and monitoring of vital signs [x] Documentation [x] Medication orders and management Discharge Plan Departure Patient Disposition: er [facility] Clinical Impression: Acute CVA (cerebrovascular accident) Prescriptions: No Action clindamycin HCl 150 mg capsule 150 mg PO QID Qty: 21 0RF Referrals: Provider,Hope ROJAS [Primary Care Provider, Family Practice]
[2025-06-06] MEDS: LABETALOL 20 MG/4 ML SYRINGE 5 MG IV (15:46)
[2025-06-06 15:47] LABS: Add Manual Diff / Slide Review NO; Hematocrit 41.7 % (36-46); Hemoglobin 14.2 g/dL (12.0-16.0); Lymphocytes Absolute Auto 2300 /uL (1100-4500); Mean Corpuscular HGB Conc 34.0 % (30-36); Mean Corpuscular Hemoglobin 30.4 PG (26-34); Mean Corpuscular Volume 89.5 fL (80-100); Platelet Count 324 X10^3/uL (150-400)
[2025-06-06] MEDS: SODIUM CHLORIDE 0.9% 1,000 ML 150 ML IV (15:47)
[2025-06-06 15:49] LABS: INR 1.1 (0.9-1.3); Prothrombin Time 12.6 SECONDS (9.4-12.5)
[2025-06-06 15:52] LABS: PTT Partial Thromboplastin Tim 33 SECONDS (25.1-36.5)
[2025-06-06 15:57] LABS: Pregnancy Test Serum,Qual Negative (Negative)
--- NOTE | 2025-06-06 16:16 | PC.NURSE ---
Pt arrived to ED due to right sided facial droop, confusion and not making any sense since yesterday evening. LKW 1900 06/05/2025. Right sided facial droop & expressive aphasia noted. Hx of diabetes & uncontrolled HTN. Dr Ramon at bedside during assesment. Pt a&ox4.
[2025-06-06 16:21] LABS: Alanine Aminotransferase 17 IU/L (<35); Albumin 4.1 g/dL (3.5-5.0); Albumin Globulin Ratio 1.2 (1.0-2.8); Alkaline Phosphatase 110 U/L (38-126); Blood Urea Nitrogen 20 mg/dL (7-17); Calcium 8.9 mg/dL (8.4-10.2); Carbon Dioxide 20 mmol/L (22-32); Chloride 100 mmol/L (98-107); Creatine Kinase 35 U/L (30-135); Estimated Glomerular Filt Rate > 60 mL/min (>60); Ethanol (ETOH) < 10 mg/dL (<10); Globulin 3.3 g/dL (1.7-4.1); Glucose 253 mg/dL (70-99); HEMOLYSIS 17 (0-50); Potassium 3.6 mmol/L (3.4-5.1); Sodium 132 mmol/L (137-145); Total Protein 7.4 g/dL (6.3-8.2)
[2025-06-06 16:32] LABS: Troponin I 0.033 ng/mL (0.01-0.034)
[2025-06-06] MEDS: ASPIRIN 81 MG CHEW TAB 324 MG PO (16:49)
== END 2025-06-06 17:51 | disposition short-term general hospital (02) ==
PROVIDERS: Emergency Provider Emergency Medicine
DX: I63.9 Cerebral infarction, unspecified (principal); R29.810 Facial weakness; R41.0 Disorientation, unspecified; R29.704 NIHSS score 4
CPT/HCPCS: 36415; 70450; 70496; 70498; 80053; 80320; 82550; 82962; 84484; 84703; 85025; 85610; 85730; 93005; 96374; 99285; 99291; Q9967